=== PATIENT | female | born 1960 | race Two or more races ===

== ENCOUNTER 2017-01-20 20:05 | Emergency (ER) | payer MEDICAID ==
[~2017-01-20] VITALS: Ht 160 cm; Wt 78.5 kg
[2017-01-20 20:27] VITALS: BP 128/74
[2017-01-20] MEDS ORDERED: KETOROLAC TROMETH 60MG/2ML VIAL IM ONE (23:30)
== END 2017-01-20 23:57 | disposition home or self-care (01) ==
LOC: ER 20:05
DX: M13.851 Other specified arthritis, right hip (principal); M25.551 Pain in right hip
CPT/HCPCS: 72100; 73502; 96372; 99284; J1885